=== PATIENT | male | born 1965 | race Caucasian/White ===

== ENCOUNTER 2016-09-16 07:03 | Day surgery (SDC) | payer OTHER ==
--- NOTE | ~2016-09-16 | EGD ---
EGD REPORT [facility] [address] [address] NAME: MARCUS ARDON : [birth year] STATUS : REG [facility]#: [id number] AGE: 51 ADM/REG DATE : 09/16/16 MR#: [id number] REPORT SERV DATE: 09/16/16 DICTATED BY: AGUILA SERRATO DATE: 09/16/16 REPORT STATUS : Draft TRANSCRIBED BY: [employer] DATE: 09/16/16 [facility] Center Patient Name: Marcus Ardon Date of : 1965 Attending MD: AGUILA SERRATO, Procedure Date No Time: 09/16/2016 Procedure: Upper GI endoscopy Indications: Follow-up of esophageal varices Referring MD: RICKY FOSS MD, GOYO CALLE Medicines: Monitored Anesthesia Care Complications: No immediate complications. Estimated blood loss: None. Procedure: Pre-Anesthesia Assessment: - ASA Grade Assessment: III - A patient with severe systemic disease. After obtaining informed consent, the endoscope was passed under direct vision. Throughout the procedure, the patient's blood pressure, pulse, and oxygen saturations were monitored continuously. The GIF [id number] was introduced through the mouth, and advanced to the second part of duodenum. The upper GI endoscopy was accomplished without difficulty. The patient tolerated the procedure well. Findings: The esophagus was normal. A single 3 mm sessile polyp with no stigmata of recent bleeding was found in the gastric antrum. Biopsies were taken with a cold forceps for histology. Verification of patient identification for the specimen was done. Estimated blood loss was minimal. The exam of the stomach was otherwise normal. The examined duodenum was normal. Impression: - Normal esophagus. - A single gastric polyp. Biopsied. - Normal examined duodenum. Recommendation: - Patient has a contact number available for emergencies. The signs and symptoms of potential delayed complications were discussed with the patient. Return to normal activities tomorrow. Written discharge instructions were provided to the patient. - Return to previous diet. - Continue present medications. - Repeat the upper endoscopy in 1 year for surveillance. EGD REPORT [facility] [address] [place] [address] NAME: MARCUS ARDON : [birth year] STATUS : REG [facility] [place] PAT#: [id number] AGE: 51 ADM/REG DATE : 09/16/16 MR#: [id number] REPORT SERV DATE: 09/16/16 DICTATED BY: AGUILA SERRATO DATE: 09/16/16 REPORT STATUS : Draft TRANSCRIBED BY: [email or web address] DATE: 09/16/16 Procedure Code(s): --- Professional --- 00166, Esophagogastroduodenoscopy, flexible, transoral; with biopsy, single or multiple Diagnosis Code(s): --- Professional --- K31.7, Polyp of stomach and duodenum I85.00, Esophageal varices without bleeding CPT copyright 2013 [employer]. All rights reserved. The codes documented in this report are preliminary and upon telepathist review may be revised to meet current compliance requirements. AGUILA SERRATO, 09/16/2016 9:04 AM Number of Addenda: 0 Note Initiated On: 09/16/2016 8:33 AM Scope Withdrawal Time 0 hours 0 minutes 0 seconds [address] [place] [address]
--- NOTE | ~2016-09-16 | EGD ---
EGD REPORT [facility] [address] [place] [place] [address] NAME: OPAL ARDON : [birth year] STATUS : REG [facility]#: [id number] AGE: 51 ADM/REG DATE : 09/16/16 MR#: [id number] REPORT SERV DATE: 09/16/16 DICTATED BY: AGUILA SERRATO DATE: 09/16/16 REPORT STATUS : Draft TRANSCRIBED BY: [employer] DATE: 09/16/16 [facility] Center Patient Name: Opal Ardon Date of : 1965 Attending MD: AGUILA SERRATO, Procedure Date No Time: 09/16/2016 Procedure: Colonoscopy Indications: High risk colon cancer surveillance: Personal history of colonic polyps Referring MD: RICKY FOSS MD, GOYO CALLE Medicines: Monitored Anesthesia Care Complications: No immediate complications. Estimated blood loss: None. Procedure: Pre-Anesthesia Assessment: - ASA Grade Assessment: III - A patient with severe systemic disease. After I obtained informed consent, the scope was passed under direct vision. Throughout the procedure, the patient's blood pressure, pulse, and oxygen saturations were monitored continuously. The [id number] was introduced through the anus and advanced to the cecum, identified by appendiceal orifice and ileocecal valve. The colonoscopy was performed without difficulty. The patient tolerated the procedure well. The quality of the bowel preparation was good. Findings: The perianal and digital rectal examinations were normal. The entire examined colon appeared normal on direct and retroflexion views. Impression: - The entire examined colon is normal on direct and retroflexion views. Recommendation: - Patient has a contact number available for emergencies. The signs and symptoms of potential delayed complications were discussed with the patient. Return to normal activities tomorrow. Written discharge instructions were provided to the patient. - Return to previous diet. - Continue present medications. - Repeat colonoscopy in 5 years for surveillance. Procedure Code(s): --- Professional --- 85263, Colonoscopy, flexible, proximal to splenic flexure; diagnostic, with or without collection of EGD REPORT [address] [place]. [address] NAME: OPAL ARDON : [birth year] STATUS : REG [facility]#: [id number] AGE: 51 ADM/REG DATE : 09/16/16 MR#: [id number] REPORT SERV DATE: 09/16/16 DICTATED BY: AGUILA SERRATO DATE: 09/16/16 REPORT STATUS : Draft TRANSCRIBED BY: [employer] DATE: 09/16/16 specimen(s) by brushing or washing, with or without colon decompression (separate procedure) Diagnosis Code(s): --- Professional --- Z86.010, Personal history of colonic polyps CPT copyright 2013 [employer]. All rights reserved. The codes documented in this report are preliminary and upon perpetual inventory clerk review may be revised to meet current compliance requirements. AGUILA SERRATO, 09/16/2016 9:02 AM Number of Addenda: 0 Note Initiated On: 09/16/2016 8:[address] [place] [id number]
[~2016-09-16 07:03] MED LIST: ABILIFY5 PO; ACT300 PO; AMARYL4 PO; ANTA250 PO; ASAB PO; B1100 PO; BENICAR HCT1 TA2 PO; CHOLECALCIFEROL 1000 UNIT; CIALIS20 MG PO; CONSTULOSE PO; COR40 PO; COREG6 PO; COZ25 PO; COZ50 PO; CYMBALTA60 PO; DIL2TAB PO; FESO4 PO; FISH-EPA1000 MG PO; FOLIC PO; GLUCOPHAGE1000 MG PO; GLUCOPHXR PO; GLUCPH PO; HUMALOG SC; HUMULIN R1 ML SC; HUMULIN R500 UNIT/1 SC; INSNOV7030 SC; INSNOVR SC; INVOKANA100 MG PO; JANUMET1 TA1 PO; JARDI25B PO; KLONO1 PO; KLONO5 PO; KLOR-CON M2020 MEQ PO; L10 PO; LANTUS SC; LEVEMFLXPN SC; LEVEMIR SC; LIPITOR10 PO; LOFIB160 PO; LOFIBRA160 MG PO; MAGOX4 PO; MAXIMUM D; MELA3 PO; MULTIPLE VIT PO; MULTIVIT/MIN PO; MULTIVITAMI1 PO; NIACIN 500 PO; NIACIN TR1000 MG PO; NITROQUICK0.4 MG SL; NITROSTAT0.4 MG SL; NORV5 PO; NOVOLOG SC; NOVOPEN SC; OXYCOD PO; PCET PO; PLAVIX PO; PR25 PO; PRIN5 PO; PROTONIX PO; SUCR PO; THERA M PLUS PO; THERGRANM PO; TRAZ100 PO; ULTRAM50 PO; VIT D3 OR; VITAMIN D3; VITAMIN D31000 UNIT PO; VITD PO; Vitamin D3 PO; XIFAXAN; XIFAXAN PO; XIFAXAN550 MG PO; ZOFRAN4 PO; ZOL100 PO
== END 2016-09-16 23:59 | disposition home or self-care (01) ==
LOC: DMU 07:03
PROVIDERS: Internal Medicine Gastroenterology
PROC: 0DJD8ZZ Inspection of Lower Intestinal Tract, Via Natural or Artificial Opening Endoscopic (ICD-10-PCS; principal; 2016-09-16 09:00)
PROC: 0DB68ZX Excision of Stomach, Via Natural or Artificial Opening Endoscopic, Diagnostic (ICD-10-PCS; 2016-09-16 09:00)
DX: Z12.11 Encounter for screening for malignant neoplasm of colon (principal); K31.7 Polyp of stomach and duodenum; I25.10 Atherosclerotic heart disease of native coronary artery without angina pectoris; I10 Essential (primary) hypertension; E11.9 Type 2 diabetes mellitus without complications; K70.30 Alcoholic cirrhosis of liver without ascites; G47.33 Obstructive sleep apnea (adult) (pediatric); Z86.010 Personal history of colon polyps; Z88.5 Allergy status to narcotic agent; Z79.84 Long term (current) use of oral hypoglycemic drugs; Z79.4 Long term (current) use of insulin; Z79.02 Long term (current) use of antithrombotics/antiplatelets; Z79.899 Other long term (current) drug therapy; Z95.5 Presence of coronary angioplasty implant and graft; Z98.2 Presence of cerebrospinal fluid drainage device
CPT/HCPCS: 43239; G0105; 82962; 88305